=== PATIENT | male | born 1955 | race Caucasian/White ===

== ENCOUNTER 2018-10-20 08:06 | Day surgery (SDC) | payer MEDICAID ==
[2018-10-20] MEDS ORDERED: LR 1,000 ML IV ONE (08:25)
--- NOTE | 2018-10-20 09:27 | PDGENHP ---
History & Physical Chief Complaint: globus/dysphagia, cc screen History of Present Illness: globus vs dysphagia, cc screen. [place] but unsedated Pertinent Past, Social, Family History: hypothyroid. no fhx cc. former smoker. occ alcohol Relevant Physical Exam: A+Ox3. CTA. S1S2. +BS, soft nt Cardiorespiratory Assessment: class 2
--- NOTE | 2018-10-20 09:31 | PDANEPAE ---
ANE History of Present Illness EGD/COLO ANE Past Medical History - Cardiovascular History Hx Hypertension: No Hx Arrhythmias: No Hx Chest Pain: Yes Hx Coronary Artery / Peripheral Vascular Disease: No Hx CHF / Valvular Disease: No Hx Palpitations: No Cardiovascular History Comment: occ chest pain per daughters report- f/u with md but patient doesn't want to take any medications - Pulmonary History Hx COPD: No Hx Asthma/Reactive Airway Disease: No Hx Recent Upper Respiratory Infection: No Hx Oxygen in Use at Home: No Hx Sleep Apnea: No Sleep Apnea Screening Result - Last Documented: Negative - Neurologic History Hx Cerebrovascular Accident: No Hx Seizures: No Hx Dementia: No - Endocrine History Hx Diabetes: No Endocrine History Comment: hypothyroidism - Renal History Hx Renal Disorders: No - Liver History Hx Hepatic Disorders: No - Neurological & Psychiatric Hx Hx Neurological and Psychiatric Disorders: No Neurological / Psychiatric History Comment: slight anxiety around procedure - Cancer History Hx Cancer: No - Congenital Disorder History Hx Congenital Disorders: No - GI History Hx Gastrointestinal Disorders: Yes Gastrointestinal History Comment: reflux. hiatal hernia - Other Health History Other Health History: reading glasses - Chronic Pain History Chronic Pain: Yes (lower back pain) - Surgical History Prior Surgeries: 10/22/14 cyst remove from ear ANE Review of Systems Review of Systems: - Exercise capacity METS (RN): 4 METS ANE Patient History - Allergies Allergies/Adverse Reactions: aloe vera Allergy (Unknown, Verified 10/17/18 10:15) - Home Medications Home Medications: Levothyroxine [Synthroid 125 mcg (RX)] 09/09/14 [Last Taken 10/19/18] - NPO status NPO Status: no food or drink >8 hours NPO Since - Liquids (Date): 10/19/18 NPO Since - Liquids (Time): 23:00 NPO Since - Solids (Date): 10/19/18 NPO Since - Solids (Time): 09:00 - Anes Hx Anes Hx: no prior problems - Smoking Hx Smoking Status: Former smoker - Alcohol Use Alcohol Use: Occasionally - Family Anes Hx Family Anes Hx: none Family Hx Anesthesia Complications: none ANE Labs/Vital Signs - Vital Signs Blood Pressure: 136/85 Heart Rate: 79 Respiratory Rate: 18 O2 Sat (%): 94 Height: 172.72 cm Weight: 89.811 kg ANE Physical Exam - Airway Neck exam: FROM Mallampati Score: Class 2 Mouth exam: normal dental/mouth exam - Pulmonary Pulmonary: no respiratory distress, clear to auscultation - Cardiovascular Cardiovascular: regular rate and rhythym, no murmur, rub, or gallop - ASA Status ASA Status: II ANE Anesthesia Plan Anesthesia Plan: GA with mask Total IV Anesthesia: Yes
[2018-10-20] MEDS ORDERED: PROPOFOL/EMULSION 500 MG/50 ML BOTTLE IV ONE (09:35)
[2018-10-20] MEDS ORDERED: NALOXONE HCL 0.4 MG/ML INJ IVP PRN (09:58)
--- NOTE | 2018-10-20 10:15 | POSTANESTH ---
Post Anesthetic Evaluation Cardiovascular Status: Normal, Stable, Similar to Pre-Op Cond Respiratory Status: Normal, Stable, Similar to Pre-op Cond. Level of Consciousness/Mental Status: Moderately Sleepy Pain Control: Adequate, Prn Tx Ordered Nausea/Vomiting Control: Adequate, Prn Tx Ordered Complications Possibly Related to Anesthesia: None Noted
--- NOTE | 2018-10-20 10:44 | GIREPORT ---
[facility] Surgical Services - Endoscopy Department Patient Name: Charles Harris Procedure Date: 10/20/2018 9:34 AM Patient Type: Outpatient Attending MD/ ER Physician: Eliseo Burks MD Procedure: Colonoscopy Indications: Screening for colorectal malignant neoplasm Providers: Eliseo Burks MD Referring MD: Soraya Martinez MD Medicines: Propofol per Anesthesia Complications: No immediate complications. Description of Procedure: After obtaining informed consent, the scope was passed under direct vis ion. Throughout the procedure, the patient's blood pressure, pulse, and oxyg en saturations were monitored continuously. The Colonoscope with irrigatio n channel was introduced through the anus and advanced to the terminal il eum, with identification of the appendiceal orifice and IC valve. The colono scopy was performed without difficulty. The patient tolerated the procedure w ell. The quality of the bowel preparation was good. Findings: The digital rectal exam was normal. The terminal ileum appeared normal. The entire examined colon appeared normal. Estimated Blood Loss: Estimated blood loss: none. Post Op Diagnosis: - The examined portion of the ileum was normal. - The entire examined colon is normal. - No specimens collected. Recommendation: - Resume previous diet. - Repeat colonoscopy in 10 years for screening purposes. - Discharge patient to home (ambulatory). - Return to primary care physician as previously scheduled. - Return to GI clinic as previously scheduled. - See EGD for other recommendations - Thank you for allowing me to help in your patient's care. Do not hesi neville to call with any questions. Attending Participation: I personally performed the entire procedure. Vitaliy Tate M.D Eliseo Burks MD 10/20/2018 10:44:31 AM This report has been signed electronicallyMatthew MD Vitaliy Number of Addenda: 0 Note Initiated On: 10/20/2018 9:34 AM Total Procedure Duration Time 0 hours 11 minutes 27 seconds [email or web address]
--- NOTE | 2018-10-20 11:05 | GIREPORT ---
[facility] Surgical Services - Endoscopy Department Patient Name: Charles Harris Procedure Date: 10/20/2018 9:32 AM Patient Type: Outpatient Attending / ER Physician: Eliseo Burks MD Procedure: Upper GI endoscopy Indications: Globus sensation vs dysphagia Providers: Eliseo Burks MD Referring MD: Soraya Martinez MD Medicines: Propofol per Anesthesia Complications: No immediate complications. Estimated blood loss: Minimal. Description of Procedure: After obtaining informed consent, the endoscope was passed under direct vision. Throughout the procedure, the patient's blood pressure, pulse, and oxygen saturations were monitored continuously. The Endoscope was intro duced through the mouth, and advanced to the third part of duodenum. The uppe r GI endoscopy was accomplished without difficulty. The patient tolerated th e procedure well. Findings: The examined esophagus was normal. A guidewire was placed and the scope was withdrawn. Dilation was performed with a Savary dilator with no resista nce at 60 Fr. The dilation site was examined following endoscope reinsertio n and showed no change. Estimated blood loss: none. The lower third of the esophagus was normal. Biopsies were taken with a cold forceps for histology. Estimated blood loss was minimal. Diffuse moderate inflammation characterized by congestion (edema), eryt leandro and granularity was found in the entire examined stomach. Biopsies were taken with a cold forceps for histology. Estimated blood loss was minim al. Scattered mild mucosal variance characterized by discoloration was foun d in the entire duodenum. Biopsies were taken with a cold forceps for histol ogy. Estimated blood loss was minimal. The exam was otherwise without abnormality. Estimated Blood Loss: Estimated blood loss was minimal. Post Op Diagnosis: - Normal esophagus. Dilated. WITH NO VISIBLE EFFECT, therefore there is no stenosis causing his symptoms. - Normal lower third of esophagus. Biopsied. - Gastritis. Biopsied. - Mucosal variant in the duodenum. Biopsied. - The examination was otherwise normal. Recommendation: - Await pathology results. - My office will call with the pathology result with 5-7 days. If you h ave not heard from my office by 14, do not assume the pathology is elisabeth l, please call [phone] to get the pathology results. - Follow an antireflux regimen PRN. - Use Protonix (pantoprazole) 40 mg PO daily. Take 30-60 minutes before breakfast. - Perform a colonoscopy today. - Return to GI clinic as previously scheduled. - Return to primary care physician as previously scheduled. - Thank you for allowing me to help in your patient's care. Do not hesi neville to call with any questions. Attending Participation: I personally performed the entire procedure. Vitaliy Tate M.D Eliseo Burks MD 10/20/2018 11:04:48 AM This report has been signed electronicallyMatthew MD Vitaliy Number of Addenda: 0 Note Initiated On: 10/20/2018 9:32 AM [email or web address]
[2018-10-20 11:36] VITALS: BP 112/75
== END 2018-10-20 11:45 | disposition home or self-care (01) ==
LOC: FSGY 08:06
PROVIDERS: ATTEND Internal Medicine Gastroenterology
DX: Z12.11 Encounter for screening for malignant neoplasm of colon (principal); R13.10 Dysphagia, unspecified
CPT/HCPCS: J2704